=== PATIENT | female | born 1950 | race Caucasian/White ===

== ENCOUNTER 2019-02-16 08:36 | Outpatient (CLI) | payer MEDICARE, OTHER ==
--- NOTE | 2019-02-24 10:53 | OP Clinic Progress Note ---
DATE OF VISIT: 02/16/2019 SUBJECTIVE: Renu is a 68-year-old female presenting to the clinic today for a right great toenail total nail avulsion. She has had pain centrally and laterally on that great toe for about three months and saw me in the clinic the other day. She has had the toenail fall off a few times and now is having pain on the lateral border as well as with direct pressure on top of the nail in any kind of shoes. She would like to have the toenail removed and allow a new one to grow in to see if she can have a better chance of it improving. She understands that this may not get better and her new nail may come in and still have problems. She does not admit to any fevers, chills, nausea, vomiting, shortness of breath or chest pain. She is concerned that she cannot do closed shoes at this time due to pain on the top of the toe. We discussed previously that she may have a subungual exostosis under the right great toenail as well and if this does not improve next time we will consider x-rays rather than doing them now based on her request. OBJECTIVE: Vitals: Temperature 97.9 degrees Fahrenheit, heart rate 84, respiration rate 16, blood pressure 139/74. O2 saturation is 96% on room air. Vascular: 2+ DP and PT pulses, right foot. Capillary refill time is less than 3 seconds to the toes of the right foot. Hair growth is present to the great toe, right foot. There is no edema noted, right foot. Dermatologic: There is no erythema, warmth or drainage noted. There is a thickened right great toenail that has some area in the distal half that is not tacked down to the nail bed. There is no warmth or signs of infection at this time. Musculoskeletal: There is pain on palpation with direct dorsal central pressure and on the lateral border. There were no other gross abnormalities noted right foot. Neurologic: Light touch sensation is intact to the toes, right foot. ASSESSMENT AND PLAN: 1. Onycholysis of the right great toenail; L60.1. PROCEDURE #1 (RIGHT GREAT TOENAIL TOTAL NAIL AVULSION): A right great toenail total nail avulsion was performed today. The risks and benefits were discussed that included but are not limited to bleeding and infection, possible return of the same problem and pain in the future as we are only doing a total nail avulsion rather than a permanent procedure. The patient understands that there are other risks as well that are possible besides what we discussed and has agreed both by written and verbal consent to go forward with this procedure at this time. Procedure in detail: An alcohol swab was utilized to cleanse the base of the right great toenail and an injection consisting of 4 cc of a 1:1 mix of 2% lidocaine plain and 0.5% Marcaine plain were injected into the base of the right great toe using cold spray before the injection. At this time once the toe was anesthetized well, the toe was cleaned with a Betadine prep. At this time the total nail was released from its dorsal and plantar attachments with a nail spatula and then removed with a nail splitter as one piece. At this time the site was rinsed with a copious amount of normal saline. Pressure was applied which obtained hemostasis. At this time dressings were applied consisting of triple antibiotic ointment, 4 x 4 gauze, 2-inch Deepali and 1-inch Coban beginning on the great toe and ending on the distal forefoot to help hold it on toe. The patient tolerated the procedure very well. She understands the importance of returning to the clinic for follow up and she will return in either 1 week or 1- 1/2 weeks to make sure that she has healed well. She has no further questions and we will see her at that time. She was given appropriate instructions regarding postprocedure care. Lauro Barrios D.P.M. /[employer] [id number] R: 02/22/19 /mab MTDD
== END 2019-02-16 09:06 ==
LOC: POD 08:36
PROVIDERS: ATTEND Podiatrist Foot & Ankle Surgery
DX: L60.1 Onycholysis (principal)
CPT/HCPCS: 11730; 99202; J2001; J3490; A4554

== ENCOUNTER 2019-02-27 13:09 | Outpatient (CLI) | payer MEDICARE, OTHER ==
--- NOTE | 2019-03-01 15:18 | OP Clinic Progress Note ---
DATE OF VISIT: 02/27/2019 SUBJECTIVE: Renu is a 68-year-old female presenting to the clinic for follow- up of a right great toenail total nail avulsion performed on 02/16/19. She admits to just minor sensitivity at the toenail base still but states overall it is doing just fine. She has been doing antibiotic and a Band-Aid daily. She does not admit to any fevers, chills, nausea, vomiting, shortness of breath or chest pain. She does not have any other concerns or issues today. OBJECTIVE: Vitals: Temperature 98.1 degrees Fahrenheit, heart rate 96, respiration rate 16, blood pressure 142/75. O2 saturation is 96% on room air. Vascular: 2+ DP and PT pulses, right foot. Capillary refill time is less than 3 seconds to the toes of the right foot. There is no edema noted, right foot. Dermatologic: The right great toenail base is mostly dry with a very thin eschar except for a very small area of wet granulation tissue on the distal lateral aspect of the right great toenail bed area. There is no abnormal drainage, erythema, warmth or any other signs of infection noted. Musculoskeletal: There is very mild sensitivity according to the patient but not really pain on palpation at all of the right great toenail border base area. There are no other gross abnormalities noted, right foot. Neurologic: Light touch sensation is intact to the toes, right foot. ASSESSMENT AND PLAN: 1. Onycholysis of the right great toenail; L60.1. 2. Post procedure (status post right great toe total nail avulsion on 02/16/19). The patient was encouraged to continue triple antibiotic ointment and a Band-Aid daily x3 days and then switch to just a plain Band-Aid daily for about 1 week. The patient knows that I will be out of town this coming Wednesday through the entire next week and that if there are any issues, she will need to go see her primary care physician, urgent care or emergency room physician. She will plan to see me in about 2-1/2 weeks unless she is feeling great then she will notify me that she does not plan to be seen because it is healed. Lauro Barrios D.P.M. ERIC/anirudh Job#: [id number] MTDD
== END 2019-02-27 13:39 ==
LOC: POD 13:09
PROVIDERS: ATTEND Podiatrist Foot & Ankle Surgery
DX: L60.1 Onycholysis (principal); Z48.817 Encounter for surgical aftercare following surgery on the skin and subcutaneous tissue
CPT/HCPCS: 99213; G0463; A4554